=== PATIENT | male | born 1955 | race Caucasian/White ===

== ENCOUNTER 2017-01-28 09:50 | Emergency (ER) | payer SELFPAY ==
[~2017-01-28] VITALS: Ht 177.8 cm; Wt 86.2 kg
[2017-01-28] MEDS ORDERED: ONDANSETRON HCL/PF 4 MG/2 ML VIAL ONE (10:05)
[2017-01-28] MEDS ORDERED: MORPHINE SULFATE INJ 4 MG/ML DISP.SYRIN ONE (10:05)
[2017-01-28] MEDS ORDERED: IV NS 0.9% 500 ML IV ONE (10:12)
[2017-01-28] MEDS ORDERED: IV SET PRIMARY 1 EA INFUS.SET MC ONE (10:12)
[2017-01-28 10:15] VITALS: BP 76/51
[2017-01-28] MEDS ORDERED: FENTANYL PF 100MCG/2ML AMPUL ONE (10:28)
[2017-01-28] MEDS ORDERED: AMIODARONE 150 MG/3 ML VIAL IV ONE (10:36)
[2017-01-28] MEDS ORDERED: IV SET PRIMARY PUMP SET 1 EA INFUS.SET MC ONE (10:37)
--- NOTE | 2017-01-28 10:40 | NUR ---
RECEIVED VERBAL ORDERS FROM DR. CORBETT FOR MORPHINE 4MG IVP, ZOFRAN 4MG IVP, IV NS 1.5 LITER IVPB, FENTANYL 25 MCG IVP, FENTANYL 25MCG IVP, ATROPINE 1MG IVP, AMIODARONE 150MG IVPB BOLUS. ALL ORDERS CARRIED OUT AND GIVEN ACCORDDINGLY BY PROTOCOL.
[2017-01-28] MEDS ORDERED: IV D5W 100 ML IV ONE (10:41)
[2017-01-28] MEDS ORDERED: IV D5W 500 ML IV ONE (10:43)
--- NOTE | 2017-01-28 11:16 | NUR ---
SEE DOWN TIME SHEETS FOR ALL DOCUMENTATIONS.
== END 2017-01-28 11:42 | disposition short-term general hospital (02) ==
LOC: ER 09:50
DX: I21.3 ST elevation (STEMI) myocardial infarction of unspecified site (principal); F17.200 Nicotine dependence, unspecified, uncomplicated; Z95.818 Presence of other cardiac implants and grafts
CPT/HCPCS: A4606; J0282; J2270; J2405; J3010; J7040; J7060; Z7610